=== PATIENT | male | born 1955 | race Caucasian/White ===

== ENCOUNTER 2022-01-04 06:35 | Emergency (ER) | payer MEDICAID ==
[~2022-01-04] VITALS: Ht 170.2 cm; Wt 88.0 kg
[2022-01-04 07:08] LABS: BASOPHILS % 0.4 % (0.0-2.0); HEMOGLOBIN. 10.4 g/dL (14.0-18.0); LYMPHOCYTES % 17.5 % (20.0-50.0); MEAN CORPUSCULAR HEMOGLOBIN 31.9 pg (28.0-32.0); MEAN CORPUSCULAR VOLUME 98.2 fL (80.0-94.0); MEAN PLATELET VOLUME 7.7 fl (7.4-10.4); MONOCYTES % 9.2 % (2.0-8.0); NEUTROPHILS % 64.9 % (40.0-76.0); PLATELET 219 x1000/uL (130-400); RED BLOOD CELL COUNT 3.26 mill/uL (4.7-6.1); RED CELL DISTRIBUTION WIDTH 17.5 % (11.6-14.6)
[2022-01-04 07:23] LABS: CHLORIDE 110 mEq/L (98-107)
[2022-01-04] MEDS ORDERED: HYDRALAZINE 20MG/ML VIAL IV NR (16:30)
[2022-01-04 21:37] VITALS: BP 159/98
== END 2022-01-04 22:06 | disposition short-term general hospital (02) ==
LOC: ER 06:35 → EDBEDREQ 13:04 → EDBEDREQTM 13:04 → CANBEDREQ 17:20 → ER 22:06
DX: E87.70 Fluid overload, unspecified (principal); N18.6 End stage renal disease; I10 Essential (primary) hypertension; I11.0 Hypertensive heart disease with heart failure; I50.9 Heart failure, unspecified; Z20.822 Contact with and (suspected) exposure to COVID-19
CPT/HCPCS: 36415; 71045; 80053; 84484; 85025; 87426; 93005; 96374; 99285; J0360